=== PATIENT | female | born 1950 | race Caucasian/White ===

== ENCOUNTER 2023-03-19 06:33 | Observation (INO) ==
--- NOTE | 2023-03-10 10:31 | PAT Medication Instructions ---
Medication Instructions Date of Service March 10, 2023 Home Medications Medication Instructions Recorded nitroglycerin 0.4 mg sublingual 0.4 mg sublingual Q5M PRN chest 06/12/20 tablet pain x3 doses, if no relief call 911 #25 tabs atenolol 100 mg tablet See Rx Instructions .Route 12/12/22 .COMPLEX #90 tabs atorvastatin 20 mg tablet 20 mg PO QAM #90 tabs 12/12/22 potassium chloride 10 mEq See Rx Instructions .Route 12/12/22 capsule,extended release .COMPLEX #90 caps triamterene 37.5 See Rx Instructions .Route 02/09/23 mg-hydrochlorothiazide 25 mg .COMPLEX #90 caps capsule aspirin 81 mg tablet,delayed release 81 mg PO QAM nitroglycerin 0.4 mg sublingual tablet 0.4 mg sublingual Q5M PRN docusate sodium 50 mg capsule 50 mg PO QAM glucosamine sulf dipot chlr,msm,chond 550 mg-C 30 mg-maxi 1 mg capsule (Glucosamine Chondroitin) 1 cap PO QAM loratadine 10 mg tablet 10 mg PO QAM vitamin B complex 1 cap PO QAM atenolol 100 mg tablet See Rx Instructions .Route .COMPLEX atorvastatin 20 mg tablet 20 mg PO QAM potassium chloride 10 mEq capsule,extended release See Rx Instructions .Route .COMPLEX triamterene 37.5 mg-hydrochlorothiazide 25 mg capsule See Rx Instructions .Route .COMPLEX anastrozole 1 mg tablet 1 mg PO QAM calcium 500 mg tablet 500 mg PO BID grape seed extract 1 dose PO QAM omeprazole 20 mg capsule,delayed release 20 mg PO QAM Continue as directed atenolol 100 mg tablet See Rx Instructions .Route .COMPLEX nitroglycerin 0.4 mg sublingual tablet 0.4 mg sublingual Q5M PRN(if needed) ASK your prescriber and surgeon anastrozole 1 mg tablet 1 mg PO QAM STOP taking 2 weeks before surgery (or as soon as possible if surgery is within 2 weeks) glucosamine sulf dipot chlr,msm,chond 550 mg-C 30 mg-maxi 1 mg capsule (Glucosamine Chondroitin) 1 cap PO QAM grape seed extract 1 dose PO QAM DO NOT take the morning of surgery docusate sodium 50 mg capsule 50 mg PO QAM loratadine 10 mg tablet 10 mg PO QAM vitamin B complex 1 cap PO QAM potassium chloride 10 mEq capsule,extended release See Rx Instructions .Route .COMPLEX triamterene 37.5 mg-hydrochlorothiazide 25 mg capsule See Rx Instructions .Route .COMPLEX calcium 500 mg tablet 500 mg PO BID Take morning of surgery With a small sip of water, OTHERWISE NOTHING TO EAT OR DRINK AFTER MIDNIGHT: aspirin 81 mg tablet,delayed release 81 mg PO QAM (unless directed otherwise by surgeon) atorvastatin 20 mg tablet 20 mg PO QAM omeprazole 20 mg capsule,delayed release 20 mg PO QAM Take evening before surgery calcium 500 mg tablet 500 mg PO BID Other Notes If you have any questions please call us at [phone] or [phone] or [phone] or [phone]
--- NOTE | 2023-03-12 13:41 | Anesthesiology Consultation ---
Date of Service March 12, 2023 Assessment & Plan (1) Encounter for pre-operative examination: - Outpatient joint assessment: Patient is currently scheduled for inpatient pathway. If re-evaluated pending system levels during current pandemic/surgeon requests outpatient pathway, patient is not recommended candidate for outpatient joint program from anesthesia standpoint. Chart Review Chart Review: Acceptable Risk for Surgery and Patient seen in Pre Admission Testing Teaching & Discussion Pre-Anesthesia Teaching/Discussion Notes: Instructed NPO after midnight before surgery, except medications with 15 cc of water. Medication instructions provided according to the PAT guidelines. History Surgery Operation Date: 03/19/23 08:40 Proposed Procedures p Right Total Knee Arthroplasty - Javid Pacheco MD Height/Weight Height: 5 ft 2 in Weight: 90.9 kg Allergies Allergy/AdvReac Type Severity Reaction Status Date / Time lisinopril Allergy Severe anaphylaxis Verified 03/10/23 10:45 Medications Home Medications Medication Instructions Recorded Confirmed Last Taken aspirin 81 mg tablet,delayed 81 mg PO QAM 06/13/19 03/10/23 02/06/22 08:00 release nitroglycerin 0.4 mg sublingual 0.4 mg sublingual Q5M PRN chest 06/12/20 03/10/23 01/07/22 tablet pain x3 doses, if no relief call 911 #25 tabs docusate sodium 50 mg capsule 50 mg PO QAM 02/06/22 03/10/23 02/10/22 08:00 glucosamine sulf dipot 1 cap PO QAM 02/06/22 03/10/23 02/10/22 08:00 chlr,msm,chond 550 mg-C 30 mg-maxi 1 mg capsule (Glucosamine Chondroitin) loratadine 10 mg tablet 10 mg PO QAM 02/06/22 03/10/23 02/10/22 08:00 vitamin B complex 1 cap PO QAM 02/06/22 03/10/23 02/10/22 08:00 atenolol 100 mg tablet See Rx Instructions .Route 12/12/22 03/10/23 Unknown .COMPLEX #90 tabs atorvastatin 20 mg tablet 20 mg PO QAM #90 tabs 12/12/22 03/10/23 Unknown potassium chloride 10 mEq See Rx Instructions .Route 12/12/22 03/10/23 Unknown capsule,extended release .COMPLEX #90 caps triamterene 37.5 See Rx Instructions .Route 02/09/23 03/10/23 Unknown mg-hydrochlorothiazide 25 mg .COMPLEX #90 caps capsule anastrozole 1 mg tablet 1 mg PO QAM 03/10/23 03/10/23 Unknown calcium 500 mg tablet 500 mg PO BID 03/10/23 03/10/23 Unknown grape seed extract 1 dose PO QAM 03/10/23 03/10/23 Unknown omeprazole 20 mg capsule,delayed 20 mg PO QAM 03/10/23 03/10/23 Unknown release Wheeled Walker #1 ea 03/12/23 03/12/23 Unknown Past Medical History Medical History GERD (gastroesophageal reflux disease) History of blood transfusion History of breast cancer History of migraine HLD (hyperlipidemia) HTN (hypertension) Iron excess Witnessed episode of apnea Patient denies h/o stroke, seizures, heart attack, heart failure, DM, or blood clots. Exercise / Class Metabolic Activity II 4-5 Yardwork/Stairs/Walk up hill (denies chest discomfort or shortness of breath with 1 FOS) Past Family History Family History Mother Deep vein thrombosis Sister Deep vein thrombosis Aunt Heart disease Breast cancer Uncle Heart disease Other No family history of adverse response to anesthesia Ulcerative colitis Denies family history of Rheumatoid arthritis Sudden SIDS (sudden infant syndrome) Ovarian cancer Prostate cancer Diabetes Osteoporosis Coronary heart disease Dyslipidemia Cerebral aneurysm Alzheimer disease Bipolar disorder Clotting disorder Crohn's disease Dementia Depression Kidney disease Myocardial infarction Osteoarthritis Schizophrenia Congenital kidney disease Gestational diabetes Lung cancer COPD (chronic obstructive pulmonary disease) Colorectal cancer Pulmonary embolism Lung disease Cancer Hypertension Colonic polyp Stroke Asthma Cystic kidney disease Past Surgical History Surgical History History of breast biopsy History of cataract surgery History of section History of esophagogastroduodenoscopy (EGD) History of partial mastectomy of right breast (02/11/22) Hx of cholecystectomy Past Anesthesia History No Hx of Anesthesia Complications and No Family Hx of Anesthesia Complications History of PONV No Hx of PONV and No Hx of Motion Sickness Social History Smoking Status: Never smoker Do You Dip or Chew Tobacco: No Hx Alcohol Use: No Hx Substance Use: No substance use type: does not use Review of Systems Patient denies chest pain, shortness of breath, dyspnea on exertion, fever, chills, cough, wheezing, or palpitations. Physical Exam Vital Signs Vitals BP 132/83 P 57 TEMP 97.4 SP02 97% on RA RESP 17 Physical Full cervical extension range of motion without pain TMD 3.5 finger breadths Mallampati Score 3 Dentition: one chipped tooth left upper back, denies loose teeth, caps/crowns, implants or bridges Lungs: normal respiratory effort. Good air movement, clear throughout to auscultation, no adventitious breath sounds Cardiac: regular rate and rhythm, no murmurs noted Carotid arteries: negative bruit bilat Lab Results Anesthesia Preop Results Results Anesthesia Widget: WBC 5.78 K/ul (4.8-10.8) 03/12/23 Hgb 13.1 g/dl (12.0-16.0) 03/12/23 Hct 39.5 % (37.0-47.0) 03/12/23 Plt 221 K/uL (130-400) 03/12/23 Na 141 mmol/L (136-145) 03/12/23 K 3.7 mmol/L (3.5-5.1) 03/12/23 Cl 106 mmol/L (98-107) 03/12/23 CO2 29 mmol/L (21-32) 03/12/23 BUN 14 mg/dl (6-23) 03/12/23 Creat 0.58 mg/dl (0.6-1.2) L 03/12/23 Glucose Level 92 mg/dl (70-99(Fasting)) 03/12/23 PT 11.1 Seconds (9.0-12.0) 03/12/23 PTT 24.2 Seconds (21.0-31.0) 03/12/23 INR 1.0 (0.9-1.1) 03/12/23 Blood Type A Positive 03/12/23 Antibody Screen NEGATIVE 03/12/23 Testing Electrocardiogram Date: 03/12/23 NSR, rate 62 bpm Chest X-Ray Date: 03/12/23 No acute process. COVID-19 Risk Screen Screening Information COVID-19 Screen Date: 03/12/23 Exposure 21 Days Family/Household +COVID Last 21 Days: No Exposure 10 Days Any COVID Exposure Last 10 Days: No Symptoms Last 10 Days Experienced COVID Sx Last 10 Days: No + COVID 0-90 Days COVID + in Last 0-90 Days: No
[~2023-03-19 06:33] MED LIST: ACETAMINOPHEN 500 MG TAB PO SCH; CeleBREX 200 MG CAP PO SCH; FAMOTIDINE 20 MG TAB PO SCH; LR 500ML BOLUS, THEN 15ML/HR IV SCH; LR 60ML/HR IV SCH; METOCLOPRAMIDE HCL 10 MG TABLET PO SCH; ROPIVACAINE 0.5% 5 MG/ML 30 ML VIAL ONE; TRANEXAMIC ACID 1,000 MG **IV Intra-op IV SCH; ceFAZolin 2000MG 2,000 MG/15 ML SYR IV SCH; dexAMETHasone**PF** 10 MG/ML VIAL IV SCH
--- NOTE | 2023-03-19 06:49 | History & Physical Bridge Note ---
Date of Service March 19, 2023 History & Physical Bridge Note I have examined the patient, reviewed the History & Physical and in the interval since the performance of the History & Physical I have noted the following changes of clinical significance: no changes noted
[2023-03-19] MEDS ORDERED: PROPOFOL IV EMULSION 10 MG/ML 20 ML VIAL IV ONE ×2 (07:26→09:18)
[2023-03-19] MEDS ORDERED: MIDAZOLAM HCL 1 MG/ML 2ML VIAL ONE (07:27)
[2023-03-19] MEDS ORDERED: ePHEDrine sulfate 50 MG/ML AMP IV PRN (08:37)
[2023-03-19] MEDS ORDERED: HYDROmorphone INJ 1 MG/ML SYRINGE IV PRN (08:37)
[2023-03-19] MEDS ORDERED: ATROPINE SULFATE 0.1 MG/ML 10ML SYR IV PRN (08:37)
[2023-03-19] MEDS ORDERED: SODIUM CHLORIDE 0.9% PF 50 ML VIAL ONE (08:52)
[2023-03-19] MEDS ORDERED: BUPIVACAINE LIPOSOME 1.3% 266 MG/20 ML VIAL ONE (08:52)
[2023-03-19] MEDS ORDERED: BUPIVACAINE/EPINEPHRINE 0.25% 1:200,000 30 ML VIAL ONE (08:52)
--- NOTE | 2023-03-19 11:10 | Operative Report ---
PG Post Operative Report Pre & Post Diagnosis Operation Date: 03/19/23 08:40 Pre-Op Diagnosis: Right Knee Advanced Degenerative Joint Disease Post-Op Diagnosis: Right Knee Advanced Degenerative Joint Disease I identified the patient and participated in the time-out.: Yes Procedure Operation Date: 03/19/23 08:40 Actual Procedures p Right Total Knee Arthroplasty(Right) - Javid Pacheco MD Surgeon Javid Pacheco MD Hazardous Substances Scientist Santos Sifuentes PA-C Estimated Blood Loss 50 Findings Consistent with Post-Op Diagnosis Operative findings were advanced right knee DJD. She had extensive grade 4 [id number] disease of the medial compartment. She has more scattered at grade 4 changes in the patellofemoral joint and even less severe laterally. She had a varus deformity to her knee with a moderate-sized knee joint effusion. Large soft tissue envelope. Specimens Right knee sent for pathology Drains None Anesthesia Type Spinal MAC Complications none Disposition Accompanied Patient To Recovery: No Indications Patient is 72-year-old female said a several year history of increasing bilateral knee pain discomfort of the right side bit worse than left. She fail ed conservative measures. X-rays showed advanced knee arthritis. She elected proceed with right total knee replacement. Description of Procedure Operative implants consist of: 1 Biomet Vanguard size 62.5 right posterior stabilized femoral component. 2. Biomet size 67 tibial tray. 3. 12 mm posterior stabilized polyethylene insert. 4. 31 x 8 all poly patella. The patient was taken the operating, identified, and placed on the operating table supine position. All contact areas were properly padded. IV antibiotics tried by anesthesia team. A spinal anesthetic and abductor canal block had provided holding area. Gill catheter was placed in sterile fashion. Right thigh turn was then placed in the right lower extremities then prepped and draped in usual sterile fashion. The right leg was elevated exsanguinated with use of an Esmarch and a tourniquet is placed at 300 mmHg. An anterior approach of the right knee was then performed through a longitudinal incision centered over the patella. Sharp dissection was carried through subcutaneous tissue down to the extensor mechanism. A medial parapatellar arthrotomy incision was made. Some subperiosteal dissection was carried out medially. Fat pad was resected from Neath patella tendon. The lateral patellofemoral ligament was released. Patella subluxated laterally and the knee was flexed. The osteophytes taken off distal femur. The ACL and PCL were then released from distal femur the tibia subluxated anteriorly. The external tibial alignment jig was then placed in the interface the tibia and adjusted 14 mm medially. Proximal tibial cut was made to move out a millimeter bone from most deficient aspect medial tibial plateau. The tibia sized to a size 67. Attention drawn the femur. The distal femur stem with a sharp drop with intramedullary canal was suction. A right 5 degree valgus cutting guide was placed. Distal femoral cutting block was pinned in place. Distal femoral cut was made to take an additional 3 mm of bone off distal femur. The femur was then sized to a size 62.5. We downsize this almost an entire size. The AP cutting block was pinned parallel to the epicondylar axis which was 4 degrees of external rotation. Anterior cut, anterior chamfer, posterior cut, posterior chamfer cuts were made. The box cutting guide was placed in just slight lateral and the box cut was made. The knee was flexed. The remnants of the medial lateral menisci were excised. The osteophytes taken off the posterior aspect of femur. A trial femoral component was placed. The tibial tray was pinned in maximum external rotation and the drill and stem punch were used to create defect in proximal tibia for the tibial tray. The knee was then trialed and the 12 mm insert fit most appropriately. Attention drawn the patella. The patella was cleaned of all soft tissue. Patella thickness measured 22 mm in thickness was cut down to 13. It was sized to a size 31 patella. The lug holes were drilled for the 31 patella. The lateral osteophytes removed. Patella button was placed. Knee was taken through range of motion patella tracked nicely with no thumbs test. Attention drawn to placing permanent components. Nupathe all trial components were removed. Bone plug was placed in the distal femur limit blood loss. Double batch Palacos G cement was mixed. Biomet Vanguard size 62.5 right posterior stabilized femoral component, size 67 tibial tray, a 12 mm posterior stabilized polyethylene insert, and a 31 x 8 all Paller patella then cemented in place. Knee was brought out into full extension till cement hardened. Final cement check was then performed. The pericapsular tissues were injected with total of 100 cc of combination of 20 cc of Exparel, 30 cc normal saline, 50 cc of quarter percent Marcaine with epinephrine. Patient did receive 1 g of tranexamic acid. The tourniquet was then let down for final tourniquet time of 51 minutes. Hemostasis surgeries electrocautery. Extensor mechanism then closed with combination 1 PDS suture #1 Vicryl suture in a [id number] fashion for extensor mechanism checked found to be intact with subcutaneous tissue then closed with 2 Dexon suture in a buried interrupted fashion skin was closed skin tatiana. Leg was then cleaned and dried and sterile dressed with Xeroform, 4 fours, sterile cast padding, Seth bandage were applied. Patient was then transferred to the recovery room in stable condition. Patient tolerated the procedure well and there were no complications. Santos Sifuentes, my physician server service assistant, was present for the entire procedure. His assistance was essential and required for appropriate patient positioning, prepping and draping, surgical exposure, performing the technical details of the operation, placement the implants, closure of the wound, and placement of the sterile bandage. I attest to the content of the Intraoperative Record and any orders documented therein. Any exceptions are noted below.
--- NOTE | 2023-03-19 11:57 | Anesthesiology Progress Note ---
Date of Service March 19, 2023 Anesthesia Post Procedure Vital Signs Vital Signs: Temp Pulse Pulse Resp BP Pulse Ox O2 Del Method 03/19/23 11:40 73 14 131/74 100 Room Air 03/19/23 11:50 65 14 121/74 96 Room Air 03/19/23 11:30 58 L 15 108/66 97 Room Air 03/19/23 11:20 65 20 118/73 100 Room Air 03/19/23 11:10 63 15 118/65 100 Oxymask 03/19/23 11:05 68 17 112/63 100 Oxymask 03/19/23 10:58 36.3 C L 72 18 114/61 98 Oxymask 03/19/23 07:00 36.5 C 66 20 137/88 97 Room Air O2 Flow Rate 03/19/23 11:40 03/19/23 11:50 03/19/23 11:30 03/19/23 11:20 03/19/23 11:10 12 03/19/23 11:05 12 03/19/23 10:58 12 03/19/23 07:00 Pain Intensity Right Knee: Pain Intensity: 0 Transfer of Care Handoff Completed per policy Notes Mental Status: alert / awake / arousable Patient Amnestic to Procedure: Yes Nausea / Vomiting: adequately controlled Pain: adequately controlled Airway Patency, RR, SpO2: stable & adequate BP & HR: stable & adequate Hydration State: stable & adequate Neuraxial Anesthesia: was administered and sensory block is resolving Anesthetic Complications: no major complications apparent
--- NOTE | 2023-03-19 12:03 | XRay Report ---
XR knee RT 1 or 2V routine HISTORY: 72 years-old Female Surgical Post Op right knee arthroplasty COMPARISON: 03/09/2023 TECHNIQUE: 2 views of the right knee FINDINGS: Total joint arthroplasty with patellar resurfacing. Anterior midline skin tatiana are noted along wit h expected postoperative soft tissue swelling with deep tissue air. Soft tissue prominence of the dis tereista thigh anteriorly. No acute fracture, dislocation or unexpected opaque foreign body. IMPRESSION: Right knee total joint arthroplasty and patellar resurfacing demonstrates satisfactory al ignment. ACT 112: Negative or not required by law. The above report was generated using voice recognition software. It may contain grammatical, syntax o r spelling errors. Electronically signed by: Sean Lo M.D. 03/19/2023 12:02 PM
[2023-03-19] MEDS ORDERED: METOCLOPRAMIDE HCL INJ 5 MG/ML 2 ML VIAL IV PRN (12:21)
[2023-03-19] MEDS ORDERED: NALOXONE HCL 0.4 MG/1 ML VIAL/CARP IV PRN (12:21)
[2023-03-19] MEDS ORDERED: ALUMINUM/MAGNESIUM SUSP 30 ML UDC PO PRN (12:21)
[2023-03-19] MEDS ORDERED: NITROGLYCERIN SL 0.4 MG/TAB TAB SL PRN (12:21)
[2023-03-19] MEDS ORDERED: MAGNESIUM HYDROXIDE SUSP 30 ML UDC PO PRN (12:21)
[2023-03-19] MEDS ORDERED: bisacodyL 10 MG SUPP PR PRN (12:21)
[2023-03-19] MEDS ORDERED: oxyCODONE HCL IR 5 MG TAB (IMMEDIATE RELEASE) PO PRN (12:21)
[2023-03-19] MEDS ORDERED: ONDANSETRON INJ 2 MG/ML 2 ML VIAL IV PRN (12:21)
[2023-03-19] MEDS ORDERED: HYDROmorphone INJ 0.5 MG/0.5 ML SYR IV PRN (12:21)
[2023-03-19] MEDS: SODIUM CHLORIDE 0.9% 1000ML 1,000 ML IV SCH ×2 (12:41→22:53)
[2023-03-19] MEDS: ACETAMINOPHEN 500 MG TAB PO SCH ×2 (13:28→21:17)
[2023-03-19] MEDS: KETOROLAC TROMETHAMINE 15 MG/ML VIAL IV SCH ×2 (13:28→18:30)
[2023-03-19] MEDS: ASCORBIC ACID 500 MG TAB PO SCH (16:28)
[2023-03-19] MEDS: ceFAZolin 2000MG 2,000 MG/15 ML SYR IV SCH (16:28)
[2023-03-19] MEDS ORDERED: TRANEXAMIC ACID / 0.7% NACL 1,000 MG/100 ML BAG IV SCH (17:00)
[2023-03-19] MEDS ORDERED: SENNA 8.6 MG TAB PO SCH ×2 (21:00)
[2023-03-19] MEDS: ASPIRIN 81 MG ECTAB PO SCH (21:17)
[2023-03-19] MEDS: DOCUSATE SODIUM 100 MG CAP PO SCH (21:20)
[2023-03-19] MEDS: CALCIUM CARBONATE 1250MG TAB PO SCH (22:55)
[2023-03-20] MEDS: ceFAZolin 2000MG 2,000 MG/15 ML SYR IV SCH (00:21)
[2023-03-20] MEDS: KETOROLAC TROMETHAMINE 15 MG/ML VIAL IV SCH ×2 (00:22→06:24)
[2023-03-20 07:38] LABS: Hematocrit (blood only) 33.8 % (37.0-47.0); Hemoglobin 11.7 g/dl (12.0-16.0); Mean Corpuscular Hemoglobin 29.3 pg (25.0-34.0); Mean Corpuscular Hgb Conc 34.6 g/dL (32.0-36.0); Mean Corpuscular Volume 84.5 fL (80.0-100.0); Platelet Count 210 K/uL (130-400); RDW Coefficient of Variation 12.9 % (11.5-14.5); RDW Standard Deviation 39.3 fL (36.4-46.3); White Blood Count 11.56 K/ul (4.8-10.8)
[2023-03-20] MEDS ORDERED: dexAMETHasone 10 MG in SYRINGE 0 ML IV SCH (08:00)
[2023-03-20] MEDS: ASPIRIN 81 MG ECTAB PO SCH (08:02)
[2023-03-20] MEDS: ASCORBIC ACID 500 MG TAB PO SCH (08:02)
[2023-03-20] MEDS: ACETAMINOPHEN 500 MG TAB PO SCH (08:02)
[2023-03-20] MEDS: CALCIUM CARBONATE 1250MG TAB PO SCH (08:03)
[2023-03-20] MEDS: DOCUSATE SODIUM 100 MG CAP PO SCH (08:03)
[2023-03-20 08:04] LABS: BUN Creatinine Ratio 27.9 (10-20); Calcium 10.2 mg/dl (8.6-10.3); Creatinine Clr Calc Pharmacy 80.3 ml/min; Est GFR (African American) 102.7 ml/min; Est GFR (Non-African American) 88.6 ml/min; Potassium 3.2 mmol/L (3.5-5.1)
[2023-03-20] MEDS ORDERED: POTASSIUM CHLORIDE 10 MEQ TABCR PO SCH (09:00)
[2023-03-20] MEDS ORDERED: PANTOprazole 40 MG TAB PO SCH (09:00)
[2023-03-20] MEDS ORDERED: TRIAMTERENE/HCTZ 37.5/25MG CAP PO SCH (09:00)
[2023-03-20] MEDS ORDERED: NON-FORMULARY MEDICATION (Glucos Sul 2kcl-Msm-Chond-C-Mn [Glucosamine Chondroitin] 550-30- PO SCH (09:00)
[2023-03-20] MEDS ORDERED: ATORVASTATIN 20 MG TAB PO SCH (09:00)
[2023-03-20] MEDS ORDERED: GRAPE SEED EXTRACT PO SCH (09:00)
[2023-03-20] MEDS ORDERED: ANASTROZOLE 1 MG TAB PO SCH (09:00)
[2023-03-20] MEDS ORDERED: ATENOLOL 50 MG TABLET PO SCH (09:00)
[2023-03-20] MEDS ORDERED: VITAMIN B COMPLEX TAB PO SCH (09:00)
[2023-03-20] MEDS ORDERED: MULTIVITAMIN TAB PO SCH (09:00)
[2023-03-20] MEDS ORDERED: NON-FORMULARY MEDICATION (Docusate Sodium 50 mg Capsule) PO SCH (09:00)
[2023-03-20] MEDS ORDERED: LORATADINE 10 MG TAB PO SCH (09:00)
--- NOTE | 2023-03-20 09:14 | Progress Notes ---
DATE OF SERVICE: 03/20/2023. SUBJECTIVE: A 72-year-old female postoperative day 1 from a right knee replacement. She is doing we ll. Had a good night. Pain is very well controlled. She did get up and walk a little bit yesterday . No chest pain or shortness of breath. Not feeling dizzy or lightheaded. OBJECTIVE: VITAL SIGNS: Temperature is 36.9. Vital signs are stable. GENERAL: Shows a pleasant, elderly female. She is sitting up in bed and looks comfortable this morn ing. LUNGS: Clear to auscultation. HEART: Regular rate and rhythm. ABDOMEN: Soft, nontender, nondistended. EXTREMITIES: Grossly neurovascularly intact except as follows. Examination of the right leg reveals the dressing to be in place. No drainage. Leg is well aligned. She can dorsiflex and plantarflex her foot appropriately. She can do a good straight leg raise. LABORATORY DATA: Hemoglobin 11.7. Hematocrit 33.8. Electrolytes are pending. ASSESSMENT: A 72-year-old female postoperative day 1 from right knee replacement, doing well. Pain is controlled. She is neurologically intact. PLAN: 1. DVT prophylaxis includes thigh-high TEDs, SCDs, and aspirin twice a day. 2. PT/OT, weightbear as tolerated. Right total knee protocol. 3. Pain control, doing okay with current pain regimen. 4. Disposition: Plan to discharge to home with some home health later today if she does okay in the rapy. Job ID: [id number]
--- NOTE | 2023-03-24 08:44 | Discharge Summary ---
Date of Service March 24, 2023 Discharge Data Consultations 03/20/23 09:49 Burn CD for patient Stat Procedures Performed Operation Date: 03/19/23 08:40 Actual Procedures p Right Total Knee Arthroplasty(Right) - Javid Pacheco MD Hospital Course (1) Status post total right knee replacement: This is a 72 year old patient admitted on 03/19/23 and underwent total knee arthroplasty. She tolerated the procedure well and there were no complications. Transferred to the PACU post op and later to the orthopedic floor for further ca re. She was given ancef for antibiotic prophylaxis. She was also given ALFRED stockings, SCDs, and aspirin for DVT prophylaxis. Hemoglobin, hematocrit, and vital signs were monitored during her hospital stay and remained stable. Did not require any blood transfusions. There were no complications during her hospital stay. By post op day #1 the patient was tolerating a regular diet, pain was reasonably controlled with oral pain medicine, and she was participating in physical therapy. On post op day #1 the patient was discharged home and set up with home health care. She was given printed discharge instructions including prescriptions for extra strength tylenol, aspirin, ketorolac, zofran, senokot, and oxycodone. Continue physical therapy, weight bearing as tolerated. Continue ALFRED stockings. Follow up approximately 2 weeks post op or sooner if there are problems or concerns. Coding Level of Care Code None Diagnoses Status post total right knee replacement Z96.651
== END 2023-03-20 11:18 | disposition home health service (06) ==
LOC: ASU 06:33 → 3N 06:33

== ENCOUNTER 2023-06-10 06:38 | Observation (INO) ==
--- NOTE | 2023-06-03 11:58 | Anesthesiology Consultation ---
Date of Service June 03, 2023 Assessment & Plan (1) Encounter for pre-operative examination: Chart Review Chart Review: Acceptable Risk for Surgery and Patient NOT seen in Pre Admission Testing - Patient NOT ideal OPJ candidate (currently 23 hour obs) -Infectious Disease screening: Per PAT nursing assessment on 06/03/23. No known infectious disease contacts in past 10 days or current infectious disease symptoms. No recent travel outside the country. Right Total Knee Arthroplasty 03/19/23= SAB at L3-4 with 2 attempts. History Surgery Operation Date: 06/10/23 07:00 Proposed Procedures p Left Total Knee Arthroplasty(Left) - Javid Pacheco MD Height/Weight Height: 5 ft 2 in Weight: 88.451 kg Allergies Allergy/AdvReac Type Severity Reaction Status Date / Time lisinopril Allergy Severe anaphylaxis Verified 06/03/23 11:08 Medications Home Medications Medication Instructions Recorded Confirmed Last Taken nitroglycerin 0.4 mg sublingual 0.4 mg sublingual Q5M PRN chest 06/12/20 06/03/23 01/07/22 tablet pain x3 doses, if no relief call 911 #25 tabs docusate sodium 50 mg capsule 50 mg PO QAM 02/06/22 06/03/23 03/18/23 05:00 loratadine 10 mg tablet 10 mg PO QAM 02/06/22 06/03/23 03/18/23 05:00 vitamin B complex 1 cap PO QAM 02/06/22 06/03/23 03/18/23 05:00 anastrozole 1 mg tablet 1 mg PO QAM 03/10/23 06/03/23 03/18/23 05:00 calcium 500 mg tablet 500 mg PO BID 03/10/23 06/03/23 03/18/23 17:00 Wheeled Walker #1 ea 03/12/23 05/25/23 Unknown atorvastatin 20 mg tablet 20 mg PO QAM #90 tabs 03/16/23 06/03/23 03/19/23 04:00 omeprazole 20 mg capsule,delayed 20 mg PO QAM #90 caps 03/16/23 06/03/23 03/19/23 04:00 release aspirin 81 mg tablet,delayed 81 mg PO BID 45 days #90 tabs 03/17/23 06/03/23 Unknown release (Adrianna Low Dose Aspirin) acetaminophen 500 mg tablet 1,000 mg PO UD PRN Pain 06/03/23 06/03/23 Unknown (Tylenol Extra Strength) amino acids (Amino Acid capsule) 1 cap PO UD 06/03/23 06/03/23 Unknown atenolol 100 mg tablet 100 mg PO QAM 06/03/23 06/03/23 Unknown potassium chloride 10 mEq 10 meq PO QAM 06/03/23 06/03/23 Unknown capsule,extended release triamterene 37.5 1 cap PO QAM 06/03/23 06/03/23 Unknown mg-hydrochlorothiazide 25 mg capsule Past Medical History Medical History GERD (gastroesophageal reflux disease) controlled, stable per pt History of blood transfusion 1987 History of breast cancer dx'd 12/2021. Rt breast. surgery + radiation-denies limb restriction History of migraine HLD (hyperlipidemia) HTN (hypertension) controlled, stable per pt Iron excess Last seen by brian 03/23/23- under observation- no indication for phlebotomy at this time Witnessed episode of apnea was told she had sleep apnea after cholecystectomy -- has never been officially tested Past Family History Family History Mother Deep vein thrombosis Sister Deep vein thrombosis Aunt Heart disease Breast cancer Uncle Heart disease Other No family history of adverse response to anesthesia Ulcerative colitis Denies family history of Rheumatoid arthritis Sudden SIDS (sudden infant syndrome) Ovarian cancer Prostate cancer Diabetes Osteoporosis Coronary heart disease Dyslipidemia Cerebral aneurysm Alzheimer disease Bipolar disorder Clotting disorder Crohn's disease Dementia Depression Kidney disease Myocardial infarction Osteoarthritis Schizophrenia Congenital kidney disease Gestational diabetes Lung cancer COPD (chronic obstructive pulmonary disease) Colorectal cancer Pulmonary embolism Lung disease Cancer Hypertension Colonic polyp Stroke Asthma Cystic kidney disease Past Surgical History Surgical History History of breast biopsy History of cataract surgery History of section History of esophagogastroduodenoscopy (EGD) History of partial mastectomy of right breast (02/11/22) Right Breast Partial Mastectomy with Needle Localization x 2 and Right Axillary Sentinal Lymph Node Biopsy - Moe Guzman, Grade 2 view, ETT 7. Hx of cholecystectomy Status post total right knee replacement February 2023. Social History Smoking Status: Never smoker Do You Dip or Chew Tobacco: No Hx Alcohol Use: No Hx Substance Use: No substance use type: does not use Lab Results Anesthesia Preop Results Results Anesthesia Widget: WBC 5.17 K/ul (4.8-10.8) 05/04/23 Hgb 13.2 g/dl (12.0-16.0) 05/04/23 Hct 39.8 % (37.0-47.0) 05/04/23 Plt 223 K/uL (130-400) 05/04/23 Na 140 mmol/L (136-145) 05/04/23 K 4.1 mmol/L (3.5-5.1) 05/04/23 Cl 105 mmol/L (98-107) 05/04/23 CO2 31 mmol/L (21-32) 05/04/23 BUN 17 mg/dl (6-23) 05/04/23 Creat 0.77 mg/dl (0.6-1.2) 05/04/23 Glucose Level 94 mg/dl (70-99(Fasting)) 05/04/23 PT 10.8 Seconds (9.0-12.0) 05/04/23 PTT 23.5 Seconds (21.0-31.0) 05/04/23 INR 1.0 (0.9-1.1) 05/04/23 Blood Type A Positive 05/04/23 Antibody Screen NEGATIVE 05/04/23 Testing Electrocardiogram Date: 03/12/23 NSR, rate 62 bpm Chest X-Ray Date: 03/12/23 No acute process.
--- NOTE | 2023-06-05 15:11 | History & Physical Report ---
Date of Service June 05, 2023 Assessment & Plan (1) Status post total right knee replacement: (2) Left knee DJD: 72-year-old female now 3 months out from a right knee replacement with advanced left knee DJD. She has failed conservative measures. Very happy with the right knee would like to have her left knee replaced. When taken to the operating room and do a left knee replacement. The risks Mente this procedure were explained to the patient clued but not limited to DVT PE infection neurological and vascular bleeding palm pain limb range of motion assist. Failure to relieve her symptoms incomplete relief of symptoms etc. The patient understands and desires to proceed. Informed consent is obtained. We will plan on DVT prophylaxis including aspirin twice a day, teds and SCDs. She can be discharged to home with home health. She was then in the hospital overnight. Hopeful discharge postop day 1. History of Present Illness Chief Complaint: . Persistent left knee pain and discomfort. Primary Care Provider: Alejo Reed MD . Patient is a a 72-year-old female who presents for follow-up of her knees. She is now off just about 3 months out from a right knee replacement. She is done well from this. She got a long history of knee problems and been through extensive conservative treatment. She continues to be bothered by her left knee pain. She has failed conservative measures including physical therapy, activity modification and anti-inflammatory medicines. She is happy with the right knee would like to have her left knee replaced. She limps more the day goes on. Is global pain. Allergies Allergy/AdvReac Type Severity Reaction Status Date / Time lisinopril Allergy Severe anaphylaxis Verified 06/03/23 11:08 Home Medications Medication Instructions Recorded Confirmed Type nitroglycerin 0.4 mg sublingual 0.4 mg sublingual Q5M PRN chest 06/12/20 06/03/23 Rx tablet pain x3 doses, if no relief call 911 #25 tabs docusate sodium 50 mg capsule 50 mg PO QAM 02/06/22 06/03/23 History loratadine 10 mg tablet 10 mg PO QAM 02/06/22 06/03/23 History vitamin B complex 1 cap PO QAM 02/06/22 06/03/23 History anastrozole 1 mg tablet 1 mg PO QAM 03/10/23 06/03/23 History calcium 500 mg tablet 500 mg PO BID 03/10/23 06/03/23 History Wheeled Walker #1 ea 03/12/23 05/25/23 Rx atorvastatin 20 mg tablet 20 mg PO QAM #90 tabs 03/16/23 06/03/23 Rx omeprazole 20 mg capsule,delayed 20 mg PO QAM #90 caps 03/16/23 06/03/23 Rx release aspirin 81 mg tablet,delayed 81 mg PO BID 45 days #90 tabs 03/17/23 06/03/23 Rx release (Adrianna Low Dose Aspirin) acetaminophen 500 mg tablet 1,000 mg PO UD PRN Pain 06/03/23 06/03/23 History (Tylenol Extra Strength) amino acids (Amino Acid capsule) 1 cap PO UD 06/03/23 06/03/23 History atenolol 100 mg tablet 100 mg PO QAM 06/03/23 06/03/23 History potassium chloride 10 mEq 10 meq PO QAM 06/03/23 06/03/23 History capsule,extended release triamterene 37.5 1 cap PO QAM 06/03/23 06/03/23 History mg-hydrochlorothiazide 25 mg capsule Past Med/Surg History Medical History (Updated 06/05/23 @ 15:09 by Javid Pacheco MD) GERD (gastroesophageal reflux disease) controlled, stable per pt History of blood transfusion 1987 History of breast cancer dx'd 12/2021. Rt breast. surgery + radiation-denies limb restriction History of migraine HLD (hyperlipidemia) HTN (hypertension) controlled, stable per pt Iron excess Last seen by brian 03/23/23- under observation- no indication for phlebotomy at this time Left knee DJD Witnessed episode of apnea was told she had sleep apnea after cholecystectomy -- has never been officially tested Surgical History History of breast biopsy History of cataract surgery History of section History of esophagogastroduodenoscopy (EGD) History of partial mastectomy of right breast (02/11/22) Right Breast Partial Mastectomy with Needle Localization x 2 and Right Axillary Sentinal Lymph Node Biopsy - Moe Guzman, Grade 2 view, ETT 7. Hx of cholecystectomy Status post total right knee replacement February 2023. Family History Mother Deep vein thrombosis Sister Deep vein thrombosis Aunt Heart disease Breast cancer Uncle Heart disease Other No family history of adverse response to anesthesia Ulcerative colitis Denies family history of Rheumatoid arthritis Sudden SIDS (sudden syndrome) Ovarian cancer Prostate cancer Diabetes Osteoporosis Coronary heart disease Dyslipidemia Cerebral aneurysm Alzheimer disease Bipolar disorder Clotting disorder Crohn's disease Dementia Depression Kidney disease Myocardial infarction Osteoarthritis Schizophrenia Congenital kidney disease Gestational diabetes Lung cancer COPD (chronic obstructive pulmonary disease) Colorectal cancer Pulmonary embolism Lung disease Cancer Hypertension Colonic polyp Stroke Asthma Cystic kidney disease Social History Smoking Status: Never smoker Second Hand Exposure: No; Do You Dip or Chew Tobacco: No; Hx Alcohol Use: No Hx Substance Use: No Preferred Language: Upper Sorbian Communication Ability: Effective Visual Impairment: No Limitations Hearing Ability: Normal Tanning Solution Maker Required: No Beliefs That Will Affect Care: None marital status: Current Living Situation: Spouse current occupational status: unemployed How many Children do You have: 0 Feels Safe at Home: Yes caffeine: Yes Dental Care, Regularly: No Physical Activity Frequency: 3-4 Times per Week Seatbelt Use: always Sunscreen Use: No Assistive Devices: Denture - Upper and Glasses Review of Systems All systems reviewed & are unremarkable except as noted in HPI & below. Physical Exam . Physical examination reveals a pleasant middle-age female. HEENT exam is benign. Neck supple no lymphadenopathy lungs clear to auscultation. Heart is regular rate and rhythm. Ab soft nontender nondistended extremity limbs grossly neuro vas intact as follows. Examination of the right knee reveals patient ambulates quite well independently. Incisions healed nicely. Range of motion is 0-1 20. Good straight leg raise. Examination left knee reveals slight varus alignment to her knee. Moderate soft tissue envelope. Small knee effusion. Tender over the medial joint line. Rang e of motion 5-1 20. No instability. Neck trachea midline, no thyromegaly Respiratory normal respiratory effort, lungs clear to auscultation Gastrointestinal (Abdomen) normal bowel sounds, soft, nontender, no hepatosplenomegaly Results & Data Results & Data Laboratory Results . Diagnostic Findings . X-rays of the left knee were reviewed. Shows advanced medial compartment arthritis. She got complete loss of medial joint space. She is got some chondral sclerosis. PG Care Time/CCT Total # of Minutes Spent Total Time Spent with Patient: Total time spent is greater than 50% in coordination of care (as documented) at patient's floor/unit and/or counseling patient: Coding Level of Care Code None Diagnoses Status post total right knee replacement Z96.651 Left knee DJD M17.12
[~2023-06-10 06:38] MED LIST changes: +BUPIVACAINE 0.5 % 5 MG/1 ML PF 10ML VIAL ONE; +BUPIVACAINE LIPOSOME/PF 266 MG, BUPIVACAINE/EPINEPHRINE 50 ML, SODIUM CHLORIDE 0.9% PF ... INFIL SCH; +EPINEPHrine INJ 1 MG/ML AMP ONE
--- NOTE | 2023-06-10 06:52 | History & Physical Bridge Note ---
Date of Service June 10, 2023 History & Physical Bridge Note I have examined the patient, reviewed the History & Physical and in the interval since the performance of the History & Physical I have noted the following changes of clinical significance: no changes noted
[2023-06-10] MEDS ORDERED: MIDAZOLAM HCL 1 MG/ML 2ML VIAL ONE (08:01)
[2023-06-10] MEDS ORDERED: PROPOFOL IV EMULSION 10 MG/ML 20 ML VIAL IV ONE (08:01)
[2023-06-10] MEDS ORDERED: fentaNYL citrate PF 100 MCG/2 ML VIAL ONE (08:02)
[2023-06-10] MEDS ORDERED: BUPIVACAINE LIPOSOME 1.3% 266 MG/20 ML VIAL ONE (09:06)
[2023-06-10] MEDS ORDERED: SODIUM CHLORIDE 0.9% PF 50 ML VIAL ONE (09:06)
[2023-06-10] MEDS ORDERED: BUPIVACAINE/EPINEPHRINE 0.25% 1:200,000 30 ML VIAL ONE (09:06)
[2023-06-10] MEDS ORDERED: ATROPINE SULFATE 0.1 MG/ML 10ML SYR IV PRN (09:19)
[2023-06-10] MEDS ORDERED: ePHEDrine sulfate 50 MG/ML AMP IV PRN (09:19)
--- NOTE | 2023-06-10 11:16 | Operative Report ---
PG Post Operative Report Pre & Post Diagnosis Operation Date: 06/10/23 08:50 Pre-Op Diagnosis: Left Knee Degenerative Joint Disease Post-Op Diagnosis: Left Knee Degenerative Joint Disease I identified the patient and participated in the time-out.: Yes Procedure Operation Date: 06/10/23 08:50 Actual Procedures p Left Total Knee Arthroplasty(Left) - Javid Pacheco MD Surgeon Javid Pacheco MD Security Associate Santos Sifuentes PA-C Estimated Blood Loss 50 Findings Consistent with Post-Op Diagnosis Operative findings reveal advanced left knee DJD. She had extensive grade 4 [id number] disease primarily in the medial compartment. Should a varus deformity to her knee. Moderate-sized joint effusion. Osteophytes primarily medially. Specimens Left knee sent for pathology Anesthesia Type Spinal MAC Complications none Disposition Accompanied Patient To Recovery: No Indications Patient is a 72-year-old female is had a several year history of increasing bilateral knee pain discomfort. She been through extensive conservative treatment which became less successful over time. She underwent a right knee replacement about 3 months ago and is done well from this. She continued be limited by left knee pain. She elected proceed with total knee arthroplasty. Description of Procedure Operative implants consist of: 1. Biomet Vanguard size 62.5 left posterior stabilized femoral component. 2. Biomet size 67 tibial tray. 3. 10 mm post stabilized polyethylene insert. 4. 31 x 8 all poly patella. The patient was taken to the operating, identified, and placed on the operating table supine position. All contact areas were appropriately padded. IV antibiotics tried by anesthesia team. A spinal anesthetic and abductor canal block had been provided in the holding area. A Gill catheter was placed in sterile fashion. Left thigh turn was then placed in the left lower extremity then prepped and draped in usual sterile fashion. The left leg was elevated exsanguinated with use of an Esmarch and tourniquet was placed at 300 mmHg. An anterior approach the left knee was then performed to longitudinal incisions over the patella. Sharp dissection was carried through subcutaneous tissue down the extensor mechanism. A medial parapatellar arthrotomy incision was made. Some subperiosteal dissection was carried out medially. The fat pad was resected from Neath patella tendon. The lateral patellofemoral ligament was released. Patella subluxated laterally knee was flexed. The osteophytes taken on distal femur. The ACL and PCL were then released from distal femur the tibia subluxated anteriorly. The external tibial alignment jig was then placed in the interface the tibia and adjusted 14 mm medially. Proximal tibial cut was made essentially flush with the most deficient aspect and medial tibial plateau. Some osteophytes taken off medial and posterior medially. Tibia was sized to a size 67. Attention drawn the femur. The distal femur generate sharp drill. Intramedullary canal was suction. A left 5 degree valgus cutting guide was placed. This femoral cutting block was pinned in place. Distal femoral cut was made to take an additional 3 mm of bone off distal femur. The femur was then sized to a size 62.5. The AP cutting block was pinned parallel to the epicondylar axis which was 5 degrees of external rotation. Anterior cut, anterior chamfer, posterior cut, posterior chamfer cuts were made. The box cutting guide was placed in a just slight lateral and the box cut was made. The knee was flexed. The remnants of the med ial and lateral menisci were excised. The osteophyte taken off the posterior aspect the femur. A trial femoral component was placed for the tibial tray was pinned in maximum external rotation and the drill and stem punch were used to create defect in proximal tibia for the tibial tray. Knee was then trialed and the 10 mm insert most appropriately. Attention drawn the patella. The patella was cleaned of all soft tissue. Patella thickness measured 22 mm in thickness was cut down to 14. Was sized to a size 31 patella. The lug holes were drilled for 31 patella. The lateral osteophytes removed. Patella button was placed. Knee was taken through range of motion patella tracked nicely with no thumbs test. Attention drawn to placing permanent components. Nupathe all trial components were removed. Bone plug was placed into this femur limit blood loss. Double batch Palacos G cement was mixed. Biomet Vanguard size 62.5 left posterior stabilized femoral component, size 67 tibial tray, a 10 mm pro stabilized polyethylene insert, and a 31 x 8 all Paller patella then cemented in place. The knee was brought out into full extension till cement hardened. Final cement check was then performed. The pericapsular tissues were injected with total of 100 cc of combination of 20 cc of Exparel, 30 cc normal saline, 50 cc of quarter percent Marcaine with epinephrine. Patient did receive 1 g tranexamic acid. The tourniquet was then let down for final tourniquet time of 52 minutes. Hemostasis assured use electrocautery to the extensor mechanism then closed with combination 1 PDS suture #1 Vicryl suture in a [id number] fashion. Extensor mechanism checked found to be intact with subcutaneous tissue then closed with 2 Dexon suture in buried interrupted fashion skin was closed skin tatiana. Leg was then cleaned and dried and a sterile dressing was Xeroform, 4 fours, sterile cast padding, Seth bandage were applied. Patient then transferred to the recovery room in stable condition. The patient tolerated procedure well and there were no complications. Santos Sifuentes, my physician assistant professor of archaeology, was present for the entire procedure. His assistance was essential and required for appropriate patient positioning, prepping and draping, surgical exposure, performing the technical details of the operation, placement the implants, closure of the wound, and placement of the sterile bandage. I attest to the content of the Intraoperative Record and any orders documented therein. Any exceptions are noted below.
--- NOTE | 2023-06-10 11:43 | Anesthesiology Progress Note ---
Date of Service June 10, 2023 Anesthesia Post Procedure Vital Signs Vital Signs: Temp Pulse Pulse Resp BP Pulse Ox O2 Del Method 06/10/23 11:35 36.3 C L 58 L 20 115/66 93 Room Air 06/10/23 11:25 62 16 117/65 98 Oxymask 06/10/23 11:15 66 19 113/71 99 Oxymask 06/10/23 11:09 36.6 C 61 18 100/60 98 Oxymask 06/10/23 07:10 36.5 C 66 20 149/92 H 96 Room Air O2 Flow Rate 06/10/23 11:35 06/10/23 11:25 4 06/10/23 11:15 11 06/10/23 11:09 11 06/10/23 07:10 Pain Intensity Left Knee: Pain Intensity: 2 Transfer of Care Handoff Completed per policy Notes Mental Status: alert / awake / arousable Patient Amnestic to Procedure: Yes Nausea / Vomiting: adequately controlled Pain: adequately controlled Airway Patency, RR, SpO2: stable & adequate BP & HR: stable & adequate Hydration State: stable & adequate Neuraxial Anesthesia: was administered and sensory block is resolving Anesthetic Complications: no major complications apparent
--- NOTE | 2023-06-10 12:15 | XRay Report ---
XR knee LT 1 or 2V routine CLINICAL HISTORY: Postoperative evaluation. COMPARISON: Left knee radiographs May 04, 2023. FINDINGS: Alignment of the total left knee arthroplasty is anatomic. There is no periprosthetic frac ture or unexpected radiopaque foreign body. There are skin tatiana. IMPRESSION: Expected findings following total left knee arthroplasty. ACT 112: Negative or not required by law. Electronically signed by: Chacho Sotomayor M.D. 06/10/2023 12:14 PM
[2023-06-10] MEDS ORDERED: bisacodyL 10 MG SUPP PR PRN (12:33)
[2023-06-10] MEDS ORDERED: HYDROmorphone INJ 0.5 MG/0.5 ML SYR IV PRN (12:33)
[2023-06-10] MEDS ORDERED: NON-FORMULARY MEDICATION (Amino Acids [Amino Acid] Capsule) PO SCH (12:33)
[2023-06-10] MEDS ORDERED: METOCLOPRAMIDE HCL INJ 5 MG/ML 2 ML VIAL IV PRN (12:33)
[2023-06-10] MEDS ORDERED: oxyCODONE HCL IR 5 MG TAB (IMMEDIATE RELEASE) PO PRN (12:33)
[2023-06-10] MEDS ORDERED: ONDANSETRON INJ 2 MG/ML 2 ML VIAL IV PRN (12:33)
[2023-06-10] MEDS ORDERED: NALOXONE HCL 0.4 MG/1 ML VIAL/CARP IV PRN (12:33)
[2023-06-10] MEDS ORDERED: MAGNESIUM HYDROXIDE SUSP 30 ML UDC PO PRN (12:33)
[2023-06-10] MEDS ORDERED: ONDANSETRON 4 MG OD TAB PO PRN (12:33)
[2023-06-10] MEDS ORDERED: ALUMINUM/MAGNESIUM SUSP 30 ML UDC PO PRN (12:33)
[2023-06-10] MEDS ORDERED: NITROGLYCERIN SL 0.4 MG/TAB TAB SL PRN (12:33)
[2023-06-10] MEDS ORDERED: SODIUM CHLORIDE 0.9% 1,000 ML IV SCH (12:33)
[2023-06-10] MEDS: ACETAMINOPHEN 500 MG TAB PO SCH ×2 (13:27→19:54)
[2023-06-10] MEDS: KETOROLAC TROMETHAMINE 15 MG/ML VIAL IV SCH ×3 (13:28→23:00)
[2023-06-10] MEDS: ceFAZolin 2000MG 2,000 MG/15 ML SYR IV SCH (16:32)
[2023-06-10] MEDS: ASCORBIC ACID 500 MG TAB PO SCH (16:33)
[2023-06-10] MEDS ORDERED: TRANEXAMIC ACID / 0.7% NACL 1,000 MG/100 ML BAG IV SCH (17:15)
[2023-06-10] MEDS: CALCIUM CARBONATE 1250MG TAB PO SCH (19:53)
[2023-06-10] MEDS: DOCUSATE SODIUM 100 MG CAP PO SCH (19:53)
[2023-06-10] MEDS: ASPIRIN 81 MG ECTAB PO SCH (19:54)
[2023-06-10] MEDS ORDERED: SENNA 8.6 MG TAB PO SCH ×2 (21:00)
[2023-06-11] MEDS: ceFAZolin 2000MG 2,000 MG/15 ML SYR IV SCH (00:51)
[2023-06-11] MEDS: KETOROLAC TROMETHAMINE 15 MG/ML VIAL IV SCH (05:48)
[2023-06-11 06:09] LABS: Hematocrit (blood only) 33.8 % (37.0-47.0); Hemoglobin 11.6 g/dl (12.0-16.0); Mean Corpuscular Hemoglobin 29.5 pg (25.0-34.0); Mean Corpuscular Hgb Conc 34.3 g/dL (32.0-36.0); Mean Platelet Volume 11.1 fL (9.4-12.4); Platelet Count 192 K/uL (130-400); RDW Coefficient of Variation 12.7 % (11.5-14.5); RDW Standard Deviation 40.4 fL (36.4-46.3); Red Blood Count 3.93 M/uL (4.20-5.40); White Blood Count 11.34 K/ul (4.8-10.8)
[2023-06-11 06:22] LABS: BUN Creatinine Ratio 32.1 (10-20); Calcium 9.8 mg/dl (8.6-10.3); Creatinine Clr Calc Pharmacy 97.7 ml/min; Est GFR (African American) 109.5 ml/min; Est GFR (Non-African American) 94.5 ml/min
[2023-06-11] MEDS ORDERED: POTASSIUM CHLORIDE CRTAB 20 MEQ TABCR PO ONE ×2 (07:45→11:00)
--- NOTE | 2023-06-11 07:45 | Orthopedic Progress Note ---
Date of Service June 11, 2023 Assessment & Plan (1) Status post left knee replacement: 72-year-old female postop day 1 from left knee replacement doing pretty well. Pain is controlled. She is neurologically intact. Potassium is a bit low we will supplement that. Plan: 1. DVT prophylaxis including thigh-high teds, SCDs, aspirin twice a day. 2. PT OT. Weight-bear as tolerated left total knee protocol. 3. Pain control: Okay with current pain regimen. 4. Disposition plan to discharge home with some home health likely later today. Subjective . 72-year-old female postop day 1 from a left knee replacement. He is doing pretty well. Pain is controlled. Had a reasonable night. No chest pain or shortness of breath. Not feeling dizzy or lightheaded. Review of Systems All systems reviewed & are unremarkable except as noted in HPI & below. Physical Exam . Physical examination was a pleasant middle-age female. She is lying in bed looks pretty comfortable. Examination left leg reveals a dressing clean dry and intact. She can dorsiflex and plantarflex her foot appropriately. She is neurologically intact. Respiratory normal respiratory effort, lungs clear to auscultation Cardiovascular RRR, no murmur, no edema Gastrointestinal (Abdomen) normal bowel sounds, soft, nontender, no hepatosplenomegaly Results & Data Results & Data Laboratory Results . Hemoglobin 11.6. Hematocrit is 33.8. Potassium is low at 3.0. Diagnostic Findings . PG Care Time/CCT Total # of Minutes Spent Total Time Spent with Patient: Total time spent is greater than 50% in coordination of care (as documented) at patient's floor/unit and/or counseling patient: Coding Level of Care Code 41507 Post Operative Follow-Up Diagnoses Status post left knee replacement Z96.652
[2023-06-11] MEDS ORDERED: dexAMETHasone 10 MG in SYRINGE 0 ML IV SCH (08:00)
[2023-06-11] MEDS: CALCIUM CARBONATE 1250MG TAB PO SCH (08:05)
[2023-06-11] MEDS: ASPIRIN 81 MG ECTAB PO SCH (08:06)
[2023-06-11] MEDS: ACETAMINOPHEN 500 MG TAB PO SCH (08:06)
[2023-06-11] MEDS: DOCUSATE SODIUM 100 MG CAP PO SCH (08:07)
[2023-06-11] MEDS: ASCORBIC ACID 500 MG TAB PO SCH (08:08)
[2023-06-11] MEDS ORDERED: VITAMIN B COMPLEX TAB PO SCH (09:00)
[2023-06-11] MEDS ORDERED: POTASSIUM CHLORIDE 10 MEQ TABCR PO SCH (09:00)
[2023-06-11] MEDS ORDERED: MULTIVITAMIN TAB PO SCH (09:00)
[2023-06-11] MEDS ORDERED: LORATADINE 10 MG TAB PO SCH (09:00)
[2023-06-11] MEDS ORDERED: ATORVASTATIN 20 MG TAB PO SCH (09:00)
[2023-06-11] MEDS ORDERED: ANASTROZOLE 1 MG TAB PO SCH (09:00)
[2023-06-11] MEDS ORDERED: TRIAMTERENE/HCTZ 37.5/25MG CAP PO SCH (09:00)
[2023-06-11] MEDS ORDERED: ATENOLOL 50 MG TABLET PO SCH (09:00)
[2023-06-11] MEDS ORDERED: NON-FORMULARY MEDICATION (Docusate Sodium 50 mg Capsule) PO SCH (09:00)
[2023-06-11] MEDS ORDERED: PANTOprazole 40 MG TAB PO SCH (09:00)
== END 2023-06-11 10:06 | disposition home health service (06) ==
LOC: 3E 06:38 → ASU 06:38